=== PATIENT | female | born 1960 | race Two or more races ===

== ENCOUNTER 2022-05-25 09:28 | Emergency (ER) | payer MEDICAID, OTHER ==
[~2022-05-25] VITALS: Ht 149.9 cm; Wt 55.0 kg
[2022-05-25 10:25] VITALS: BP 149/100
[2022-05-25 10:45] LABS: Urine WBC None Seen /hpf (0 - 5)
[2022-05-25 10:51] LABS: Basophils # (auto) 0 10 ^3/uL (0-0.2); Basophils % (auto) 0.4 % (0.0-2.0); Eosinophils # (auto) 0 10 ^3/uL (0-0.8); Eosinophils % (auto) 0.1 % (0.0-7.0); Hematocrit 41.9 % (36.0-46.0); Hemoglobin 14.1 g/dL (12.2-16.2); Lymphocytes # (auto) 1.5 10 ^3/uL (0.4-5.4); Lymphocytes % (auto) 19.4 % (10.0-50.0); Mean Corpuscular Hemoglobin 29.3 pg (28.0-32.0); Mean Corpuscular Hgb Conc. 33.6 g/dL (32.0-36.0); Mean Corpuscular Volume 87.3 fL (80.0-100.0); Monocytes # (auto) 0.4 10 ^3/uL (0-1.3); Neutrophils # (auto) 5.5 10 ^3/uL (1.6-8.6); Neutrophils % (auto) 74.1 % (37.0-80.0); Nucleated Red Blood Cells % 0.1 %; Red Cell Distribution Width 13.1 % (11.8-14.3); White Blood Cell 7.5 10^3/uL (4.4-10.8)
[2022-05-25 10:59] LABS: Urine Bacteria NONE SEEN /hpf (None Seen); Urine Blood Negative /uL (Negative); Urine Specific Gravity 1.019 (1.001-1.035)
[2022-05-25 11:11] LABS: Albumin 3.8 g/dL (3.4-5.0); BUN/Creatinine Ratio 18.5; Calcium 9.3 mg/dL (8.5-10.1); Potassium 4.1 mmol/L (3.5-5.1)
[2022-05-25 11:14] LABS: Bilirubin, Total 0.8 mg/dL (0.2-1.0); Total Protein 7.3 g/dL (6.4-8.2)
[2022-05-25] MEDS ORDERED: METR500T PO (12:12)
[2022-05-25] MEDS ORDERED: CIPR-173 PO (12:12)
[2022-05-25] MEDS ORDERED: ACET-1080 PO (12:12)
[2022-05-25] MEDS: KETOROLAC TROMETH 60MG/2ML VIAL IM ONE (12:13)
== END 2022-05-25 12:33 | disposition left against medical advice (07) ==
LOC: ER 09:28
DX: K57.92 Diverticulitis of intestine, part unspecified, without perforation or abscess without bleeding (principal)
CPT/HCPCS: 36415; 74176; 80053; 81001; 83605; 85025; 96372; 99285; J1885

== ENCOUNTER 2023-01-24 16:03 | Emergency (ER) | payer MEDICAID ==
[~2023-01-24] VITALS: Ht 149.9 cm; Wt 68.1 kg
[~2023-01-24 16:03] MED LIST: ACET-1080 PO; CIPR-173 PO; METR500T PO
[2023-01-24 16:43] LABS: Basophils # (auto) 0 10 ^3/uL (0-0.2); Basophils % (auto) 0.3 % (0.0-2.0); Eosinophils # (auto) 0.1 10 ^3/uL (0-0.8); Eosinophils % (auto) 0.7 % (0.0-7.0); Hemoglobin 14.2 g/dL (12.2-16.2); Lymphocytes # (auto) 2.2 10 ^3/uL (0.4-5.4); Lymphocytes % (auto) 30.9 % (10.0-50.0); Mean Corpuscular Hemoglobin 30.1 pg (28.0-32.0); Mean Corpuscular Hgb Conc. 33.9 g/dL (32.0-36.0); Mean Corpuscular Volume 88.7 fL (80.0-100.0); Monocytes # (auto) 0.6 10 ^3/uL (0-1.3); Monocytes % (auto) 8.8 % (0.0-12.0); Neutrophils # (auto) 4.2 10 ^3/uL (1.6-8.6); Neutrophils % (auto) 59.3 % (37.0-80.0); Nucleated Red Blood Cells % 0.1 %; Red Blood Cells 4.73 10^6/uL (4.0-5.20); Red Cell Distribution Width 12.8 % (11.8-14.3); White Blood Cell 7.1 10^3/uL (4.4-10.8)
[2023-01-24 17:02] LABS: INR 1.07 (0.9-1.15); Partial Thromboplastin Time 27.2 SEC (24.5-34.5); Prothrombin Time 11.2 sec (9.3-11.8)
[2023-01-24 17:08] LABS: Alanine Aminotransferase 31 U/L (7-40); Alkaline Phosphatase 107 U/L (46-116); Anion Gap 6 (5-15); Aspartate Aminotransferase 19 U/L (13-40); BUN/Creatinine Ratio 12.9 (10.0-20.0); Blood Urea Nitrogen 9 mg/dL (9-23); Calcium 9.9 mg/dL (8.7-10.4); Carbon Dioxide 28 mmol/L (20-30); Chloride 106 mmol/L (98-107); Glucose 112 mg/dL (74-106); Magnesium 2.1 mg/dL (1.6-2.6); Potassium 3.5 mmol/L (3.5-5.1); Sodium 140 mmol/L (136-145)
[2023-01-24 17:10] LABS: Bilirubin, Total 0.5 mg/dL (0.2-1.0); Total Protein 7.5 g/dL (5.7-8.2)
[2023-01-24] MEDS ORDERED: ASPirin 325 MG TAB PO ONE (20:15)
[2023-01-24] MEDS ORDERED: NITROGLYCERIN 0.4 MG SL TAB SL ONE (20:30)
[2023-01-25] MEDS ORDERED: LABETALOL HCL 5 MG/ML 4ML SYRINGE IV ONE (02:15)
[2023-01-25 03:03] VITALS: BP 181/88; PULSE 62; RESP 16; TEMP 98; O2SAT 98
[2023-01-25] MEDS ORDERED: NITROGLYCERIN 0.4 MG SL TAB SL ONE (03:30)
== END 2023-01-25 03:38 | disposition short-term general hospital (02) ==
LOC: ER 16:03
DX: R07.89 Other chest pain (principal); I10 Essential (primary) hypertension; E03.9 Hypothyroidism, unspecified; E78.5 Hyperlipidemia, unspecified; Z90.49 Acquired absence of other specified parts of digestive tract; Z79.2 Long term (current) use of antibiotics; Z79.899 Other long term (current) drug therapy; Z88.5 Allergy status to narcotic agent; Z88.8 Allergy status to other drugs, medicaments and biological substances
CPT/HCPCS: 36415; 71045; 80053; 83735; 83880; 84484; 85025; 85610; 85730; 93005; 96374; 99285; J3490

== ENCOUNTER → 2023-07-18 | Outpatient (CLI) | payer MEDICAID ==
[2023-07-18 09:46] LABS: Basophils # (auto) 0 10 ^3/uL (0-0.2); Basophils % (auto) 0.6 % (0.0-2.0); Eosinophils # (auto) 0 10 ^3/uL (0-0.8); Eosinophils % (auto) 0.6 % (0.0-7.0); Hematocrit 41.1 % (36.0-46.0); Hemoglobin 13.7 g/dL (12.2-16.2); Lymphocytes # (auto) 1.6 10 ^3/uL (0.4-5.4); Lymphocytes % (auto) 34.5 % (10.0-50.0); Mean Corpuscular Hemoglobin 29.4 pg (28.0-32.0); Mean Corpuscular Hgb Conc. 33.2 g/dL (32.0-36.0); Mean Corpuscular Volume 88.6 fL (80.0-100.0); Monocytes # (auto) 0.3 10 ^3/uL (0-1.3); Monocytes % (auto) 6.9 % (0.0-12.0); Neutrophils # (auto) 2.7 10 ^3/uL (1.6-8.6); Neutrophils % (auto) 57.4 % (37.0-80.0); Nucleated Red Blood Cells % 0.1 %; Red Blood Cells 4.64 10^6/uL (4.0-5.20); Red Cell Distribution Width 12.9 % (11.8-14.3); White Blood Cell 4.7 10^3/uL (4.4-10.8)
[2023-07-18 10:10] LABS: Alanine Aminotransferase 25 U/L (7-40); Albumin 4.5 g/dL (3.2-4.8); Alkaline Phosphatase 99 U/L (46-116); Anion Gap 6 (5-15); Aspartate Aminotransferase 20 U/L (13-40); BUN/Creatinine Ratio 12.5 (10.0-20.0); Blood Urea Nitrogen 8 mg/dL (9-23); Calcium 9.6 mg/dL (8.5-10.1); Carbon Dioxide 31 mmol/L (20-30); Chloride 105 mmol/L (98-107); Glucose 113 mg/dL (74-106); LDL Cholesterol 65 mg/dL (< 100); Potassium 3.9 mmol/L (3.5-5.1); Sodium 142 mmol/L (136-145); Triglycerides 122 mg/dL (< 150)
[2023-07-18 10:11] LABS: Bilirubin, Total 0.6 mg/dL (0.2-1.0); Cholesterol 145 mg/dL (< 200); HDL Cholesterol 58 mg/dL (40-59); Total Protein 7.3 g/dL (5.7-8.2)
== END | disposition home or self-care (01) ==
LOC: LAB 09:26
PROVIDERS: ATTEND Nurse Practitioner Family
DX: I10 Essential (primary) hypertension (principal); E78.5 Hyperlipidemia, unspecified
CPT/HCPCS: 36415; 80053; 80061; 82306; 84439; 84443; 85025

== ENCOUNTER 2023-09-25 10:06 | Inpatient (IN) | payer MEDICAID ==
[~2023-09-25] VITALS: Ht 149.9 cm; Wt 69.4 kg
[2023-09-25 10:43] LABS: Urine Bacteria None Seen /hpf (None Seen)
[2023-09-25 10:57] LABS: Urine Blood Negative /uL (Negative); Urine Clarity Clear (Clear); Urine Color Colorless (Yellow); Urine Protein, UAD Negative (Negative); Urine Specific Gravity 1.004 (1.001-1.035); Urine Urobilinogen Normal (Negative); Urine WBC <1 /hpf (0 - 5); Urine pH 6.5 (5.0-9.0)
[2023-09-25 11:29] LABS: Alanine Aminotransferase 33 U/L (7-40); Albumin 4.6 g/dL (3.2-4.8); Alkaline Phosphatase 108 U/L (46-116); Anion Gap 5 (5-15); Aspartate Aminotransferase 24 U/L (13-40); BUN/Creatinine Ratio 17.9 (10.0-20.0); Blood Urea Nitrogen 12 mg/dL (9-23); Calcium 9.8 mg/dL (8.5-10.1); Carbon Dioxide 29 mmol/L (20-30); Chloride 108 mmol/L (98-107); Glucose 126 mg/dL (74-106); Potassium 3.8 mmol/L (3.5-5.1); Sodium 142 mmol/L (136-145)
[2023-09-25 11:30] LABS: Bilirubin, Total 0.5 mg/dL (0.2-1.0); Total Protein 7.2 g/dL (5.7-8.2)
[2023-09-25 11:38] LABS: Basophils # (auto) 0 10 ^3/uL (0-0.2); Basophils % (auto) 0.5 % (0.0-2.0); Eosinophils # (auto) 0 10 ^3/uL (0-0.8); Eosinophils % (auto) 0.5 % (0.0-7.0); Hematocrit 40.6 % (36.0-46.0); Hemoglobin 13.7 g/dL (12.2-16.2); Lymphocytes # (auto) 1.3 10 ^3/uL (0.4-5.4); Lymphocytes % (auto) 28.5 % (10.0-50.0); Mean Corpuscular Hemoglobin 29.6 pg (28.0-32.0); Mean Corpuscular Hgb Conc. 33.7 g/dL (32.0-36.0); Mean Corpuscular Volume 87.7 fL (80.0-100.0); Monocytes # (auto) 0.3 10 ^3/uL (0-1.3); Monocytes % (auto) 7.2 % (0.0-12.0); Neutrophils # (auto) 2.9 10 ^3/uL (1.6-8.6); Neutrophils % (auto) 63.3 % (37.0-80.0); Nucleated Red Blood Cells % 0.2 %; Red Blood Cells 4.63 10^6/uL (4.0-5.20); Red Cell Distribution Width 12.9 % (11.8-14.3); White Blood Cell 4.5 10^3/uL (4.4-10.8)
[2023-09-25] MEDS: ASPirin 81 mg TAB PO ONE (11:39)
[2023-09-25 11:56] LABS: INR 1.01 (0.9-1.15); Partial Thromboplastin Time 23.9 SEC (24.5-34.5); Prothrombin Time 10.7 sec (9.3-11.8)
[2023-09-25] MEDS: IOHEXOL 350 MG/ML 100ML IJ ONE (13:20)
[2023-09-25 15:29] VITALS: PULSE 69; RESP 19; O2SAT 99
[2023-09-25] MEDS ORDERED: MORPHINE SULFATE INJ 2 MG/ml SYRG IV PRN (15:30)
[2023-09-25] MEDS ORDERED: NITROGLYCERIN 0.4 MG SL TAB SL PRN (15:30)
[2023-09-25] MEDS ORDERED: AMOX500C2 PO (15:41)
[2023-09-25] MEDS ORDERED: LOSA-535 PO (15:41)
[2023-09-25] MEDS ORDERED: CYCL-614 PO (15:41)
[2023-09-25] MEDS ORDERED: GAB100C PO (15:41)
[2023-09-25] MEDS ORDERED: IBUP-1455 PO (15:41)
[2023-09-25] MEDS ORDERED: BENZ100C97 PO (15:41)
[2023-09-25] MEDS ORDERED: LEVO88TA4 PO (15:41)
[2023-09-25] MEDS ORDERED: CEFA500C PO (15:41)
[2023-09-25] MEDS ORDERED: ROSU5TAB24 PO (15:41)
[2023-09-25] MEDS: SODIUM CHLORIDE 0.9% 1,000 ML IV SCH (15:45)
[2023-09-25 16:20] LABS: LDL Cholesterol 64 mg/dL (< 100); Triglycerides 122 mg/dL (< 150)
[2023-09-25 16:22] LABS: Cholesterol 141 mg/dL (< 200); HDL Cholesterol 61 mg/dL (40-59)
[2023-09-25] MEDS: ATORVASTATIN 20 MG TAB PO SCH (21:22)
[2023-09-25] MEDS: HYDROcodone-ACET 5/325MG TAB PO PRN (21:22)
[2023-09-25] MEDS ORDERED: CYCLOBENZAPRINE HCL 10 MG TAB PO PRN (22:00)
[2023-09-25] MEDS ORDERED: LORazepam 2MG/ML-1ML VIAL IV PRN (22:00)
[2023-09-25 22:45] VITALS: BP 140/78; PULSE 57; RESP 16; TEMP 98.6; O2SAT 96
[2023-09-25] MEDS: ACETAMINOPHEN 325 MG TAB PO PRN (23:31)
[2023-09-26] VITALS (8 sets, daily range): BP systolic 114–159; BP diastolic 67–75; PULSE 55–77; RESP 16–18; TEMP 97.4–98.6; O2SAT 96–98
[2023-09-26 06:08] LABS: Basophils # (auto) 0 10 ^3/uL (0-0.2); Basophils % (auto) 0.4 % (0.0-2.0); Eosinophils # (auto) 0 10 ^3/uL (0-0.8); Eosinophils % (auto) 0.8 % (0.0-7.0); Hematocrit 37.8 % (36.0-46.0); Hemoglobin 12.8 g/dL (12.2-16.2); Lymphocytes # (auto) 1.5 10 ^3/uL (0.4-5.4); Lymphocytes % (auto) 35.5 % (10.0-50.0); Mean Corpuscular Hemoglobin 29.8 pg (28.0-32.0); Mean Corpuscular Hgb Conc. 33.8 g/dL (32.0-36.0); Mean Corpuscular Volume 88.2 fL (80.0-100.0); Monocytes # (auto) 0.4 10 ^3/uL (0-1.3); Monocytes % (auto) 9.8 % (0.0-12.0); Neutrophils # (auto) 2.3 10 ^3/uL (1.6-8.6); Neutrophils % (auto) 53.5 % (37.0-80.0); Nucleated Red Blood Cells % 0.1 %; Red Blood Cells 4.28 10^6/uL (4.0-5.20); White Blood Cell 4.3 10^3/uL (4.4-10.8)
[2023-09-26 06:29] LABS: Alanine Aminotransferase 26 U/L (7-40); Alkaline Phosphatase 87 U/L (46-116); Anion Gap 6 (5-15); Aspartate Aminotransferase 17 U/L (13-40); Bilirubin, Total 0.6 mg/dL (0.2-1.0); Blood Urea Nitrogen 12 mg/dL (9-23); Calcium 9.4 mg/dL (8.5-10.1); Carbon Dioxide 28 mmol/L (20-30); Chloride 110 mmol/L (98-107); Glucose 100 mg/dL (74-106); Potassium 3.3 mmol/L (3.5-5.1); Sodium 144 mmol/L (136-145); Total Protein 6.7 g/dL (5.7-8.2)
[2023-09-26] MEDS: LEVOTHYROXINE SODIUM 88 MCG TAB PO SCH (08:10)
[2023-09-26] MEDS: GABAPENTIN 100 MG CAP PO SCH (10:00)
[2023-09-26] MEDS: LOSARTAN POTASSIUM 50 MG TAB PO SCH (10:17)
[2023-09-26] MEDS: ASPirin 81 mg TAB PO SCH (10:17)
[2023-09-26] MEDS: ENOXAPARIN SOD 40 MG/0.4 ML SYRINGE SC SCH (10:17)
[2023-09-27 01:00] VITALS: BP 142/74; PULSE 66; RESP 17; TEMP 97.8; O2SAT 97
[2023-09-27 05:00] VITALS: BP 125/60; PULSE 55; RESP 17; TEMP 97.9; O2SAT 97
[2023-09-27] MEDS ORDERED: CYCL-837 PO (07:41)
[2023-09-27 07:57] VITALS: BP 140/58; PULSE 69; RESP 16; TEMP 98.4; O2SAT 96
[2023-09-27 08:00] VITALS: BP 140/58; PULSE 65; PULSE 69; RESP 16; TEMP 98.4; O2SAT 96
[2023-09-27 08:12] VITALS: BP 140/50; PULSE 69; RESP 16; TEMP 98.4; O2SAT 96
== END 2023-09-27 08:43 | disposition home or self-care (01) | DRG 347 ==
LOC: ER 10:06 → TELE 15:29 → TELE-CENTR 21:54
PROVIDERS: ADMIT Nurse Practitioner Family; ATTEND Family Medicine
DX: M54.2 Cervicalgia (principal); G93.89 Other specified disorders of brain; E03.9 Hypothyroidism, unspecified; J98.11 Atelectasis; I10 Essential (primary) hypertension; E78.00 Pure hypercholesterolemia, unspecified; F17.200 Nicotine dependence, unspecified, uncomplicated; Z85.3 Personal history of malignant neoplasm of breast; Z88.6 Allergy status to analgesic agent; Z83.3 Family history of diabetes mellitus
CPT/HCPCS: 36415; 70450; 70551; 71275; 72125; 80053; 80061; 81001; 83735; 83880; 84443; 84484; 85025; 85610; 85730; 93005; 93886; 97163; G0378

== ENCOUNTER → 2024-05-17 | Outpatient (CLI) | payer MEDICAID ==
[~2024-05-17] MED LIST changes: +BENZ100C97 PO; +CYCL-614 PO; +CYCL-837 PO; +GAB100C PO; +IBUP-1455 PO; +LEVO88TA4 PO; +LOSA-535 PO; +ROSU5TAB24 PO
[2024-05-17 08:34] LABS: Basophils # (auto) 0 10 ^3/uL (0-0.2); Basophils % (auto) 0.4 % (0.0-2.0); Eosinophils # (auto) 0 10 ^3/uL (0-0.8); Eosinophils % (auto) 0.4 % (0.0-7.0); Hematocrit 39.7 % (36.0-46.0); Hemoglobin 13.5 g/dL (12.2-16.2); Lymphocytes # (auto) 1.8 10 ^3/uL (0.4-5.4); Lymphocytes % (auto) 35.5 % (10.0-50.0); Mean Corpuscular Hemoglobin 29.2 pg (28.0-32.0); Mean Corpuscular Hgb Conc. 33.9 g/dL (32.0-36.0); Mean Corpuscular Volume 86.2 fL (80.0-100.0); Monocytes # (auto) 0.4 10 ^3/uL (0-1.3); Monocytes % (auto) 7.7 % (0.0-12.0); Neutrophils # (auto) 2.8 10 ^3/uL (1.6-8.6); Platelet Count (auto) 244 10^3/uL (140-450); Red Blood Cells 4.61 10^6/uL (4.0-5.20); Red Cell Distribution Width 13.7 % (11.8-14.3); White Blood Cell 4.9 10^3/uL (4.4-10.8)
[2024-05-17 09:13] LABS: Alanine Aminotransferase 26 U/L (7-40); Albumin 4.4 g/dL (3.2-4.8); Alkaline Phosphatase 107 U/L (46-116); Anion Gap 5 (5-15); Aspartate Aminotransferase 22 U/L (13-40); BUN/Creatinine Ratio 15.3 (10.0-20.0); Bilirubin, Total 0.6 mg/dL (0.2-1.0); Blood Urea Nitrogen 11 mg/dL (9-23); Calcium 9.8 mg/dL (8.7-10.4); Carbon Dioxide 28 mmol/L (20-31); Chloride 107 mmol/L (98-107); Cholesterol 131 mg/dL (< 200); LDL Cholesterol 59 mg/dL (< 100); Sodium 140 mmol/L (136-145); Total Protein 7.3 g/dL (5.7-8.2); Triglycerides 91 mg/dL (< 150)
[2024-05-17 09:17] LABS: Glucose 130 mg/dL (74-106); HDL Cholesterol 60 mg/dL (40-59)
== END | disposition home or self-care (01) ==
LOC: LAB 07:56
PROVIDERS: ATTEND Nurse Practitioner Family
DX: Z00.01 Encounter for general adult medical examination with abnormal findings (principal); E03.9 Hypothyroidism, unspecified; I10 Essential (primary) hypertension; R73.03 Prediabetes; E78.5 Hyperlipidemia, unspecified
CPT/HCPCS: 36415; 80053; 80061; 82043; 83036; 84443; 85025